=== PATIENT | male | born 1970 | race Caucasian/White ===

== ENCOUNTER 2018-07-22 08:47 | Day surgery (SDC) | payer BC ==
[2018-07-22] MEDS ORDERED: METHYLENE BLUE 10 ML VIAL ONE (10:15)
[2018-07-22] MEDS ORDERED: HEMOSTATIC MATRIX 10 ML 1 EACH PAD MC ONE (10:15)
[2018-07-22] MEDS ORDERED: methylPREDNISolone ACETATE 40 MG/ML VIAL ONE (10:16)
[2018-07-22] MEDS ORDERED: BUPIVACAINE MPF 0.5% W/EPI INJ 30 ML VIAL ONE (10:16)
[2018-07-22] MEDS ORDERED: LIDOCAINE HCL/PF 1% 30 ML SDV ONE (10:16)
[2018-07-22] MEDS ORDERED: BACITRACIN 50000 UNITS/VIAL ONE (10:17)
--- NOTE | 2018-07-22 10:30 | NUR ---
Pre-op reading teacher Note Patient arrived on unit, ambulatory, in stable condition. Vital signs stable: BP: 120/74 Pulse: 81 RR: 18 Temp: 97.5 F SpO2: 99% on room air Personal belongings inventoried, signed belongings form. Patient's spouse, Taylor, holding on to [employer]. No skin issues noted. Changed into gown, non-skid socks applied. Medical history reviewed and noted. Pre-op checklist complete, witnessed informed consent and forms signed. Peripheral IV access established to the left hand 20 gauge, intact, patent and saline locked. Safety and fall precautions in place: bed in lowest and locked position, side rails up x2, bed alarm on, call light and personal possessions in reach, room well lit, floor clutter-free. Report given to staff prior to transportation to OR by staff, left unit via bed. Contact information for spouse received and noted.
[2018-07-22] MEDS ORDERED: GLIP5TAB13 PO (10:43)
[2018-07-22] MEDS ORDERED: METF-440 PO (10:43)
[2018-07-22] MEDS ORDERED: METO50TA16 PO (10:43)
[2018-07-22] MEDS ORDERED: DICL75TA5 PO (10:43)
[2018-07-22] MEDS ORDERED: ASPI-605 PO (10:43)
[2018-07-22] MEDS ORDERED: FAMOTIDINE/PF INJ 20 MG/2 ML VIAL IV ONE (11:21)
[2018-07-22] MEDS ORDERED: MIDAZOLAM HCL 2 MG/2ML VIAL ONE (11:21)
[2018-07-22] MEDS ORDERED: FENTANYL PF 250MCG/5ML AMPUL ONE (11:21)
[2018-07-22] MEDS ORDERED: DEXAMETHASONE SOD PHOSPHATE 10 MG/ML VIAL ONE (11:22)
[2018-07-22] MEDS ORDERED: CEFAZOLIN 1 GM ONE (13:14)
[2018-07-22] MEDS ORDERED: oxyCODONE/APAP (5/325 MG) 1 UDTAB TABLET PO PRN (15:00)
[2018-07-22] MEDS ORDERED: HYDROMORPHONE 1 MG/1 ML DISP.SYRIN IV PRN (15:00)
--- NOTE | 2018-07-22 15:00 | NUR ---
Post-op sales and service advisor Note Patient arrived on unit from OR via bed, in stable condition. Vital signs stable: BP: 122/70 Pulse: 83 RR: 20 Temp: 97.6 F SpO2: 99% on room air Patient currently resting in bed with eyes open in Semi-Fowlers position, no acute distress noted. Easily arousable to verbal stimuli. Alert and oriented x4, no acute distress. Able to make needs known. Respirations even and unlabored on room air. Peripheral IV access established to the left hand 20 gauge, intact, patent and saline locked. Pain well controlled with 1x dose of ordered hydromorphone IV given. Patient currently clean, dry and comfortable, on low-air loss mattress. Will continue to monitor and intervene as needed. Spouse at bedside. Addendum: 07/22/18 at 1608 by NAKUL TOUSSAINT RN Post-op orders received and noted. Addendum: 07/22/18 at 1612 by NAKUL TOUSSAINT RN Correction: METAL SLITTER Note (not discharge) Dressing to lower back, midline, clean, dry and intact.
--- NOTE | 2018-07-22 15:30 | NUR ---
THERAPEUTIC SUPPORT STAFF Note Patient evaluated by physical therapy as ordered. Able to walk 200+ week without DME of front-wheeled walker, steady gait. No numbness or tingling. Able to move all extremities appropriately. No dizziness, nausea or vomiting. Pain rated 3/10 at this time, no additional pain medication requested. Dressing to lower back, midline, clean, dry and intact. Able to tolerate fluids and diet orally. Spouse at bedside, will continue to monitor.
--- NOTE | 2018-07-22 16:16 | NUR ---
Post-op manager technical sales Note Patient ambulates with steady gait, in stable condition. Vital signs stable. Monitored appropriately. Personal belongings inventoried, signed belongings form. No skin issues noted. Peripheral IV access established to the left hand 20 gauge removed with catheter tip intact, no bleeding, redness or swelling of site. Provided post-operative education, discharge education and Exitcare provided to both patient and spouse. Emphasized emergency situations and possible complications with both patient and spouse. Verbalized understanding, signed discharge form. All questions answered. ID bands removed. Patient escorted to [facility] via wheelchair with JACE Roldan, discharged home in stable condition with spouse, Taylor, via private car.
== END 2018-07-22 12:00 | disposition home or self-care (01) ==
LOC: DS 08:47 → MED 09:46 → UNDOADMIN 09:46 → DS 12:00 → UNDODISIN 15:49
PROVIDERS: ATTEND Specialist
DX: M51.17 Intervertebral disc disorders with radiculopathy, lumbosacral region (principal); F17.210 Nicotine dependence, cigarettes, uncomplicated; I25.10 Atherosclerotic heart disease of native coronary artery without angina pectoris
CPT/HCPCS: 63030; 72020; 97116; 97161; 97530; A6209; A6402 ×2; J0330; J0690 ×2; J1100 ×2; J1170; J2250; J2405; J2704; J2765; J3010; J3490 ×3; Q9968; G0378; J1030